=== PATIENT | male | born 1970 | race African-American/Black ===

== ENCOUNTER 2018-10-20 08:39 | Emergency (ER) | payer SELFPAY ==
[~2018-10-20] VITALS: Ht 167.6 cm; Wt 83.0 kg
[2018-10-20 08:52] VITALS: BP 139/96
[2018-10-20] MEDS ORDERED: LIDOCAINE HCL 1% 20ML VIAL (Pyxis) INJ INFIL ONE (10:00)
[2018-10-20] MEDS ORDERED: BACITRACIN ZINC OINT UDPKT TOP ONE (10:45)
== END 2018-10-20 10:57 | disposition home or self-care (01) ==
LOC: ER 09:19
DX: S61.210A Laceration without foreign body of right index finger without damage to nail, initial encounter (principal); I10 Essential (primary) hypertension; F17.200 Nicotine dependence, unspecified, uncomplicated; W26.8XXA Contact with other sharp object(s), not elsewhere classified, initial encounter; Y93.89 Activity, other specified; Y92.89 Other specified places as the place of occurrence of the external cause; Y99.8 Other external cause status
CPT/HCPCS: 12001; 99283; J3490; Z7610

== ENCOUNTER 2018-10-27 08:37 | Emergency (ER) | payer OTHER ==
[~2018-10-27] VITALS: Ht 167.6 cm; Wt 82.0 kg
[2018-10-27 09:43] VITALS: BP 135/87
== END 2018-10-27 10:22 | disposition home or self-care (01) ==
LOC: ER 08:37
DX: Z48.02 Encounter for removal of sutures (principal)
CPT/HCPCS: 99281